=== PATIENT | female | born 1950 | race African-American/Black ===

== ENCOUNTER → 2017-07-22 | Outpatient (CLI) | payer MEDICARE, BC ==
[~2017-07-22] MED LIST: CO Q-10100 MG PO; COD LIVER OIL1 EAC4 PO; COQ-10100 MG PO; CRESTOR10 MG PO; DIFLUCAN150 M1 PO; DIFLUCAN200 MG PO; DIOVAN 80 MG TA80 M1 PO; HYDROCODON-ACE1 EAC7 PO; LIVALO2 MG PO; LOSARTAN POTAS100 MG PO; MAALOX ADVANCE355 M1 PO; METFORMIN HCL500 MG PO; MOBIC7.5 MG PO; NEPHROCAPS SOFT1 CAP; NEXIUM40 MG PO; NORCO 5-325 TA1 EACH PO; OMEGA 3 1,0001 EACH PO; PREDNISONE 10 M10 MG PO; UBIQUINOL100 MG PO; UNICOMPLEX M TA1 TA1 PO; VITAMIN B-12500 MCG PO; VITAMIN D-32000 UNIT PO; VITAMIN D2000 UNIT PO; ZANAFLEX4 MG PO
== END ==
LOC: M.RAD 09:00
DX: M81.0 Age-related osteoporosis without current pathological fracture (principal); N91.2 Amenorrhea, unspecified; Z78.0 Asymptomatic menopausal state

== ENCOUNTER → 2017-12-14 | Outpatient (CLI) | payer MEDICARE, BC ==
[2017-12-14 19:07] LABS: eGFR IF AFRICAN AMERICAN 79 (>59)
[2017-12-15 12:05] LABS: PARATHYROID HORMONE 120 pg/mL (15-65)
== END ==
LOC: M.LAB 09:33
PROVIDERS: Internal Medicine Gastroenterology
DX: E83.52 Hypercalcemia (principal); I10 Essential (primary) hypertension; E78.5 Hyperlipidemia, unspecified; M81.0 Age-related osteoporosis without current pathological fracture; K21.9 Gastro-esophageal reflux disease without esophagitis

== ENCOUNTER → 2017-12-24 | Outpatient (CLI) | payer MEDICARE, BC | LOC: M.RAD 12-16 09:20 | DX: Z12.31 Encounter for screening mammogram for malignant neoplasm of breast (principal) ==

== ENCOUNTER 2018-01-21 17:16 | Inpatient (IN) | payer MEDICARE, BC ==
[~2018-01-21] VITALS: Ht 152.4 cm; Wt 65.3 kg
[~2018-01-21 17:16] MED LIST changes: -DIFLUCAN150 M1 PO; -LOSARTAN POTAS100 MG PO; -VITAMIN B-12500 MCG PO
[2018-01-21 17:26] VITALS: BP 207/119
[2018-01-21] MEDS ORDERED: LIVALO2 MG PO (17:33)
[2018-01-21] MEDS ORDERED: LOSARTAN POTAS100 MG PO (17:34)
[2018-01-21] MEDS ORDERED: DIFLUCAN150 M1 PO (17:34)
[2018-01-21] MEDS ORDERED: VITAMIN B-12500 MCG PO (17:34)
[2018-01-21 18:37] LABS: ABSOLUTE BASOPHILS 0.1 thou/uL (0.0-0.2); ABSOLUTE EOSINOPHILS 0.1 thou/uL (0.0-0.7); ABSOLUTE LYMPHOCYTES 2.5 thou/uL (0.8-5.3); ABSOLUTE MONOCYTES 0.5 thou/uL (0.0-1.2); ABSOLUTE NEUTROPHILS 2.4 thou/uL (1.6-8.1); BASOPHILS 1.2 %; EOSINOPHILS 1.2 %; HEMATOCRIT 40.8 % (37.0-47.0); HEMOGLOBIN 13.4 gm/dL (12.0-15.0); LYMPHOCYTES 44.5 %; MCH 29.7 pg (26.0-34.0); MCV 90.1 fL (80.0-100.0); MONOCYTES 9.9 %; MPV 8.3 fl. (7.2-11.1); NUCLEATED RBCS 0 /100WBC; PLATELET COUNT* 237 thou/uL (150-400); POLYS 43.2 %; RBC 4.53 mil/uL (4.20-5.00); RDW-CV 14.5 % (10.5-14.5); WBC 5.5 thou/uL (4.0-11.0)
[2018-01-21 18:50] LABS: ANION GAP 7 mmol/L (7-16); BUN 11 mg/dL (7-18); CALCIUM 9.5 mg/dL (8.5-10.1); CHLORIDE 105 mmol/L (98-107); CO2 28 mmol/L (21-32); CREATININE 1.1 mg/dL (0.6-1.3); GLUCOSE 122 mg/dL (70-99); POTASSIUM 3.8 mmol/L (3.5-5.1); SODIUM 140 mmol/L (136-145)
[2018-01-21 19:01] LABS: ALBUMIN 3.7 g/dL (3.4-5.0); ALKALINE PHOSPHATASE 80 U/L (46-116); LIPASE 140 U/L (73-393); MAGNESIUM 2.1 mg/dL (1.8-2.4); NT-PRO BRAIN NAT PEPTIDE 341 pg/mL (<300); SGOT 16 U/L (15-37); SGPT 22 U/L (30-65); TOTAL BILIRUBIN 0.9 mg/dL (<0.1-1.0); TOTAL PROTEIN 7.4 g/dL (6.4-8.2); TROPONIN-I LEVEL <0.06 ng/mL (<0.06)
[2018-01-21 20:58] VITALS: BP 138/79
[2018-01-21 21:00] VITALS: BP 150/71
[2018-01-22] VITALS: BP 116/62
--- NOTE | 2018-01-22 01:09 | NUR ---
PT ARRIVED TO 222 AT 2105. ALERT ORIENTED. PT QUESTIONING NURSE ABOUT SLIGHT VARIANCES IN HR AND BP. REASURRANCE PROVIDED. PT STATED PAIN 1/10 CHEST PRESSURE. AFTER PT ADMITTED SHE STATED CHEST PRESSURE 3/10. DR DELVALLE NOTIFIED. TYLENOL ORDER OBTAINED AND NTG GIVEN. PT RATED PAIN 1/10 AFTER NTG. 22OO TROPONIN BACK AT .20. DR DELVALLE NOTIFIED A SECOND TIME. TRAMADOL AND CLONAZAPAM ORDERED AND GIVEN. PT RESTING COMFORTABLY WITH EYES CLOSED. TELEMETRY SHOWS SR/SB BBB 50S-60S. AMBULATES IN ROOM STEADY GAIT.
[2018-01-22 04:00] VITALS: BP 115/70
[2018-01-22 08:00] VITALS: BP 145/76
--- NOTE | 2018-01-22 08:00 | NUR ---
AM ASSESSMENT COMPLETE, DEFER TO COMPUTER CHARTING. FISHING GUIDE TRACKING SB WITH BBB. ALERT OREINTED. DENIES CHEST PAIN, DIZZINESS OR ANY DISCOMFORT AT THIS TIME. WILL CONTINUE TO MONITOR.
--- NOTE | 2018-01-22 10:30 | NUR ---
MET WITH PT TO DISCUSS HOME SITUATION/DC PLANNING. PT LIVE WITH SPOUSE, HE IS DIALYSIS PT AND SHE CARES FOR HIM. PT IS INDEPENDENT AND ACTIVE. STATES HAS HAD SOME FAMILY 'STRESS' LATELY AND THINKS IT MAY HAVE CONTRIBUTED TO CURRENT HEALTH. PT DENIES DC NEEDS, PLANS TO GO HOME TOMORROW.
[2018-01-22 12:08] VITALS: BP 155/90
--- NOTE | 2018-01-22 15:06 | EKG ---
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 01/22/18 1506 26 26 Prashanth Guerra MD, [facility] /EPI
[2018-01-22 15:59] VITALS: BP 140/85
--- NOTE | 2018-01-22 16:24 | NUR ---
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 NO COMPLAINTS OF CHEST PAIN, DIZZINESS OR ANY DISCOMFORT TO NURSING. EDUCATED ON CARDIAC CATH SCHEDULED FOR TOMORROW VERBALIZED UNDERSTANDING. CALL LIGHT WITHIN REACH, WILL CONTINUE WITH PLAN OF CARE.
[2018-01-22 20:00] VITALS: BP 111/67
[2018-01-23] VITALS (11 sets, daily range): BP systolic 97–128; BP diastolic 53–76
--- NOTE | 2018-01-23 03:48 | NUR ---
EMERGENCY MANAGEMENT CONSULTANT SPOKEN WITH ATTEMPT MADE TO ACQUIRE TIME FOR PROCEDURE RELATED TO WILL CALL MEDICATIONS SCHEDULED AT 0700 UNABLE TO OBTAIN TIME PRESENTLY WILL REPORT TO ONCOMING RN REGARDING MEDICATION AND ADMINISTRATION
[2018-01-23 05:23] LABS: ANION GAP 8 mmol/L (7-16); BUN 15 mg/dL (7-18); CALCIUM 9.5 mg/dL (8.5-10.1); CHLORIDE 109 mmol/L (98-107); CHOLESTEROL 255 mg/dL (<200); CO2 25 mmol/L (21-32); GLUCOSE 100 mg/dL (70-99); HDL CHOLESTEROL 66 mg/dL (>40); LDL CHOLESTEROL 174 mg/dL (<100); POTASSIUM 4.2 mmol/L (3.5-5.1); SODIUM 142 mmol/L (136-145); TC:HDL 3.9 Ratio (Not establshd); TRIGLYCERIDE 75 mg/dL (<150); VLDL 15 mg/dL (<40)
[2018-01-23 05:27] LABS: SERUM ASSESSMENT Clear
--- NOTE | 2018-01-23 06:04 | NUR ---
PATIENT COMPLAINED OF CHEST PRESSURE RATED AT 4/10 MEDISTERNAL GESTURED WHEN ASKED FOR LOCATION OF DISCOMFORT EKG OBTAINED WITHOUT NOTED SIGNIFICANT CHANGES THE PATIENT DENIED SOA,OR GI UPSET B/P OBTAINED NITRO ADMINISTERED PRN X 2 DOCUMENTED B/P MAINTAINED 112/66 HR 55 AT REASSESSMENT POST NITRO ADMINISTRATION PATIENT REPORTS COMPLETE RELIEF FROM DISCOMFORT 20G IV PLACED IN RAC IN PREPARATION FOR PROCEDURE ATTEMPTS X 3 BY 3 RN PATIENT NOT TOLERATE WELL MX COMPLAINTS OF PAIN COMPLAINS OF PAIN WITH FLUSH IN 22 IN RFA SITE IS SOFT TO TOUCH WITHOUT ERYTHEMA, WARMTH, OR SWELLING FLUIDS INITATED ORDERED AT THIS TIME
[2018-01-23 06:15] LABS: APTT 29.7 Seconds (25.0-31.3); PROTIME 10.3 Seconds (9.20-11.50)
--- NOTE | 2018-01-23 06:17 | NUR ---
ASSUMED CARE OF PATIENT AT 1900 THE PATIENT REMAINS IN SB-SR OCCASIONALLY MEASURING OUT A 1ST DEG AV BLOCK BBB NOTED ON THE TELEMONITOR O2 SAT IS MAINTAINED ON RA THE PATIENT CONTINUES TO GET UP AD DAVID ROUTINE ET PRN INTERVENTIONS CONTINUE TO BE EFFECTIVE FOR SX MANAGEMENT PATIENT CONTINUES TO PROGRESS TOWARDS GOALS SAFETY INTERVENTIONS CONTINUE BED LOWERED WHEELS LOCKED SIDE RAILS UP X 2 CALL LIGHT IN REACH REPORT TO BE GIVEN TO ONCOMING KAYLA
--- NOTE | 2018-01-23 11:32 | CARD ---
[address] [address] CARDIAC CATH REPORT Name: RAVIN MUSE Room: [address] ADM IN M.R.#: [id number] Admission: 01/21/18 Attend Phys: Ann Marie Coppola Discharge: Date of : 48 Report #: [id number] THIS REPORT FOR: //name// APPROVED REPORT Study performed: 01/23/2018 09:43:17 Patient Details Patient Status: In-Patient Room #: 222 The patient is a 67 year-old female Event Personnel Clif Sandoval Boatbuilder Supervisor, Shelby Cabello RN Furnace Mason, Leslie Joshi RTR Monitor, Miky Huffman Scrub Procedures Performed Art Access - R femoral artery* Left Heart Cath w/or w/o Coronaries LHC Hemostasis w/ Mynx Procedure Narrative The patient was brought electively to the Cardiac Catheterization Laboratory and was prepped and draped in a sterile manner. The right femoral was infiltrated with 2% Lidocaine subcutaneous anesthesia. A [place] 6 FR sheath was inserted into the right femoral artery. Coronary angiography was performed using coronary diagnostic catheters. The right coronary system was accessed and visualized with a Diagnostic 6Fr JR4 catheter. The left coronary system was accessed and visualized with a Diagnostic 6Fr JL4 catheter. The left ventricle was accessed and visualized with a Diagnostic 6Fr straight pigtail catheter. Left ventricular/Aortic Valve gradient assessed via catheter pullback. An aortogram of the TOTH was performed. Pre-demployment femoral angiogram was performed . Closure device was deployed with a Fr Mynx 6Fr/7Fr. Hemostasis was obtained with manual pressure following sheath removal without any complications. There was no hematoma. The right coronary system was also accessed and visualized with a diagnostic 6Fr 3DRC catheter. Intraoperative Conscious Sedation Sedation start time: 10:21 Case end Time: 10:45 Fentanyl 25 mcg Versed 2 mg Fluoro Time: 3.2 minutes Dose: DAP 47525 cGycm2 390 mGy Contrast Type and Amount: Visipaque 90 [place] [address] CARDIAC CATH REPORT Name: RAVIN MUSE Room: [address] IN [facility]#: [id number] Admission: 01/21/18 Attend Phys: Ann Marie Coppola Discharge: Date of : 48 Report #: [id number] Diagnostic Cath Left Main 0 Percent narrowing LAD 20% proximal LAD narrowing and tortuosity of the midportion of this dominant vessel Circumflex Codominant vessel with 0% narrowing Right Coronary Small but codominant vessel with 30-40% ostial catheter-induced spasm Left Ventriculography The left ventricle is normal in size with normal contractility. The left ventricular ejection fraction is estimated to be 60%. Left ventricular wall motion abnormalities are not present. There is no mitral insufficiency. Hemodynamics The aortic pressure is 148/65 mmHg with a mean of 96 mmHg. The left ventricular pressure is 138/4 mmHg with a mean of mmHg. The left ventricular end diastolic pressure is 10 mmHg. Pullback from the left ventricle to the aorta revealed no gradient across the aortic valve. Conclusion #1 mild coronary artery disease characterized by the following: A 20% proximal LAD narrowing with tortuosity of the midportion of this vessel B normal left main and circumflex coronary arteries C small but codominant right coronary artery with 30-40% ostial catheter-induced spasm #2 normal left ventricular systolic function, estimated ejection fraction being 60% #3 normal left-sided hemodynamics study Recommendations Cardiac [place] [address] CARDIAC CATH REPORT Name: RAVIN MUSE Room: [address] IN [facility].#: [id number] Admission: 01/21/18 Attend Phys: Ann Marie Coppola Discharge: Date of : 48 Report #: [id number] Diagnostic Cath Approved by: Clif Sandoval MD Date/Time: 01/23/2018 11:30:11 <ELECTRONICALLY SIGNED> By: Clif Sandoval MD, [facility] 01/23/18 1132 1132 1132Jojose Sandoval MD, FACC /INF
--- NOTE | 2018-01-23 13:58 | EKG ---
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
--- NOTE | 2018-01-23 14:02 | EKG ---
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 Officer: OSKAR : 1950 Requested By: Rita Landers Order Number: [id number] Reading MD: Abbe Guerra Measurements Intervals [place] Rate: 52 P: 42 ID: [id number] QRS: -31 QRSD: 164 T: 183 QT: 422 QTc: 393 Interpretive Statements Sinus rhythm Left bundle branch block Compared to ECG 01/21/2018 17:27:08 No significant changes Electronically Signed On 01-23-2018 14:01:47 CDT by Abbe Guerra [email or web address] <ELECTRONICALLY SIGNED> By: Prashanth Guerra MD, [facility] 01/23/18 1401 0505 0505 Prashanth Guerra MD, [facility] /EPI
--- NOTE | 2018-02-21 09:08 | CON ---
[address] [address] CONSULTATION Name: RAVIN MUSE Room: [address] IN M.R.#: [id number] Admission: 01/21/18 Attend Phys: Ann Marie Coppola Discharge: 01/23/18 Date of : 48 Report #: [id number] THIS REPORT FOR: //name// CC: Marianna Landers Cardiology Consultation HISTORY OF PRESENT ILLNESS: I was asked by Dr. Landers to see this 67-year-old -Prydeinig woman in cardiology consultation for evaluation and treatment of chest pain with an elevated troponin. This lady also has a chronic left bundle-branch block. She developed chest pain at about noon yesterday and it came and went on and off for about 5 hours. She describes the chest pain as substernal. It is a pressure sensation and a 7 on a scale of 10. It was worse with activity and better with rest. It did not occur at rest completely. It was not associated with shortness of breath, nausea, vomiting or diaphoresis. There was no relationship to food. It did radiate into her neck. At the she had this, her blood pressure was up, as high as 204/111. She also had a headache with it. She felt like her heart was racing, but her blood pressure device recorded only a heart rate of high 70s. She normally; however, heart rates in the low 60s. She did have an elevated troponin and her initial troponin was 0.06. Subsequently, it faisal to 0.2 and subsequently 0.23. Further troponins are pending. She does have a chronic left bundle that was unchanged from previous left her previous EKGs. She has had chest pains in the past and has seen Dr. Arroyo for that. She sees him in [place] office. We obtained one of his notes, which said that she has had an ischemic workup that was negative. She did have a cardiac catheterization in [place] years ago and she was told that it did not show anything. She thinks that Dr. Arroyo did a nuclear stress test on her, but she is not sure. She is not sure when that was either. She denies any recent chest pains until this one occurred. She has not had dyspnea on exertion, shortness of breath at rest, orthopnea, PND or edema. She denies syncope or near syncope. Coronary risk factors include hypercholesterolemia, borderline diabetes, she is on metformin for that, and high blood pressure. Her blood pressure has been higher than usual. She was taken off of losartan recently and substituted losartan for it. It has not controlled her blood pressure as well as it should. She has not had family history of heart disease. She has not had renal disease, peripheral vascular disease, carotid disease, TIAs or CVAs, claudication or open or nonhealing wounds. She has had a past history of acid reflux surgery. ALLERGIES: She told me she had no known allergies; however, the allergies listed in the chart include HYDROCHLOROTHIAZIDE AND TRIAMTERENE, that is she is apparently allergic to DYAZIDE; DOXYCYCLINE, AMLODIPINE, and ROSUVASTATIN. That may be from her primary care doctor's chart. She sees Dr Pickens. HOME MEDICATIONS: Include vitamin D, B12, Diflucan, which she was apparently put on recently, losartan 100 mg daily, metformin 500 mg daily at bedtime, and [facility] [address] [facility] [place] [address] CONSULTATION Name: RAVIN MUSE Room: [address] IN [place].#: [id number] Admission: 01/21/18 Attend Phys: Rita CareyLauren Ann Marie Landers Discharge: 01/23/18 Date of : 48 Report #: [id number] fish oil 1000 mg daily, as well as CoQ10 100 mg daily. REVIEW OF SYSTEMS: Positive for pneumonia, shortness of breath with exercise, passing out in the distant past, history of a heart murmur, diabetes, arthritis, wearing glasses, and wearing dentures. Otherwise, review of systems is negative for some 40 different complaints in 14 different system categories including central nervous system, general, respiratory, cardiovascular, endocrine, gastrointestinal, genitourinary, hematologic, lymphatic, allergic, immunologic, psychiatric, musculoskeletal, skin, eyes, ears, mouth, and throat. Please see review of system form for details and negatives in review of systems. SOCIAL HISTORY: She is , does not smoke, drink or use illegal drugs. FAMILY HISTORY: Apparently, no family history of what she terms as heart problems, but she does have a family history of high blood pressure medications. She has 1 sister and 2 brothers that of cancer. PHYSICAL EXAMINATION: GENERAL: She presents as a well-developed, well-nourished white female in no acute distress. VITAL SIGNS: Pulse was 57, blood pressure was 115/70, respirations are 16 and regular, and temperature was 97.3. HEENT: Her head was atraumatic. Eyes clear. NECK: Supple. There is no jugular venous distention or hepatojugular reflux. Thyroid is not enlarged. There is no adenopathy. SKIN: Warm and dry. Mucous membranes are moist. LUNGS: Clear to auscultation and percussion. HEART: Revealed normal first and second heart sound. There is soft S4. There is no S3. There are no murmurs, rubs, thrills, heaves or gallops. PMI is nondisplaced. ABDOMEN: Soft, flat, nontender, no palpable masses, no organomegaly. EXTREMITIES: Reveal no cyanosis, clubbing or edema. NEUROLOGIC: The patient mentated normally, talked normally, moved all extremities normally. DATA: Chest x-ray was negative. I believe her BNP was 341. IMPRESSION: 1. Chest pain that likely represents a non-ST segment elevation myocardial infarction. 2. Mild elevation of troponin that appears to be rising from normal. 3. Essential hypertension. 4. Hyperlipidemia. 5. Borderline diabetes mellitus, adult onset type. 6. Left [place] [address] CONSULTATION Name: RAVIN MUSE Room: [address] IN .R.#: [id number] Admission: 01/21/18 Attend Phys: Ann Marie Coppola Discharge: 01/23/18 Date of : 48 Report #: [id number] RECOMMENDATION: We will up get her on aspirin. She got some in the ER and we will continue the aspirin. We will start a beta manolo, give her p.r.n. nitro. She has more pain. We will put her on nitro paste. She will hold her metformin because I think she needs a cardiac catheterization. That will probably be done tomorrow; however, I will talk to Dr. Arroyo who is in the middle of a case at [facility] already today. He has also had a previous case at [facility] today. We will probably put this off until tomorrow. She seems to be quite stable. She has had no pain since she got nitroglycerin in the ER. Thank you very much for asking me to see the patient. If there are any questions, please feel free to contact me. <ELECTRONICALLY SIGNED> By: Jeff Trevizo MD, FACC 02/21/18 0908 1344 [id number]. Abbe Guerra MD, FACC /nt
== END 2018-01-23 17:35 | disposition home or self-care (01) | DRG 281 ==
LOC: M.ERS 17:16 → M.TBA-ER 20:17 → M.2W 20:17
PROVIDERS: Emergency Medicine Emergency Medical Services; Internal Medicine; ADMIT Internal Medicine
PROC: B215YZZ Fluoroscopy of Left Heart using Other Contrast (ICD-10-PCS; principal; 2018-01-23)
PROC: B211YZZ Fluoroscopy of Multiple Coronary Arteries using Other Contrast (ICD-10-PCS; principal; 2018-01-23)
PROC: 4A023N7 Measurement of Cardiac Sampling and Pressure, Left Heart, Percutaneous Approach (ICD-10-PCS; principal; 2018-01-23)
PROC: B310YZZ Fluoroscopy of Thoracic Aorta using Other Contrast (ICD-10-PCS; principal; 2018-01-23)
DX: I21.4 Non-ST elevation (NSTEMI) myocardial infarction (principal); I16.1 Hypertensive emergency; I10 Essential (primary) hypertension; E78.5 Hyperlipidemia, unspecified; K21.9 Gastro-esophageal reflux disease without esophagitis; I44.7 Left bundle-branch block, unspecified; R73.03 Prediabetes; Z79.82 Long term (current) use of aspirin; Z88.1 Allergy status to other antibiotic agents; Z88.8 Allergy status to other drugs, medicaments and biological substances; Z79.899 Other long term (current) drug therapy

== ENCOUNTER → 2018-02-28 | Outpatient (CLI) | payer MEDICARE, BC ==
[~2018-02-28] MED LIST changes: +DIFLUCAN150 M1 PO; +LOSARTAN POTAS100 MG PO; +VITAMIN B-12500 MCG PO
== END ==
LOC: M.MRI 07:07
DX: M47.896 Other spondylosis, lumbar region (principal); M54.6 Pain in thoracic spine

== ENCOUNTER → 2018-04-05 | Outpatient (CLI) | payer MEDICARE, BC ==
[~2018-04-05] MED LIST changes: +BYSTOLIC 5 MG5 M1 PO; +MOBIC15 MG PO; +TYLENOL325 M1 PO
--- NOTE | ~2018-04-05 | PAINCON ---
[address] [address] PAIN MANAGEMENT CONSULTATION Name: RAVIN MUSE Room: [facility].#: [id number] Admission: 04/05/18 Attend Phys: Shasta Scruggs MD Discharge: Date of : 48 Report #: [id number] THIS REPORT FOR: //name// CC: Marianna Scruggs DATE OF SERVICE: 04/05/2018 CHIEF COMPLAINT: Lumbar radicular pain, low back and leg pain. HISTORY: The patient is a 67-year-old female who notes pain on her left side, particularly when she goes from a sitting to a standing position. She has undergone physical therapy for 2 weeks. She has been undergoing cardiac rehabilitation and a mild myocardial infarct in 12/2017. Complains of pain, which is quite problematic particularly when she is getting out of the car. She feels that a portion of it may have been a result of carrying her 's oxygen. The patient feels like she has been having a knot in the low back and buttocks area. ALLERGIES: DYAZIDE, DOXYCYCLINE, AMLODIPINE, AND CRESTOR. MEDICATIONS: Tylenol 325 mg q. 6 hours p.r.n., vitamin D3 2000 units, metformin 500 mg b.i.d., Bystolic 5 mg, fish oil 1000 mg, and Livalo 2 mg, and CoQ10. PAST MEDICAL HISTORY: Hypertension, coronary artery disease, hyperlipidemia, prediabetic, GERD, and left bundle branch block. PAST SURGICAL HISTORY: Tonsillectomy, esophageal dilation, tubal ligation, Diego fundoplication. REVIEW OF SYSTEMS: Denies fever or chills. Denies headaches, or congestion. Denies cough, shortness of breath. Denies abdominal distention, constipation. Denies burning, urine, urgency, frequency, or hematuria. Denies rash or burning. LABORATORY DATA: 1. MRI of the lumbar spine dated 02/28/2018, L3-L4 shows no focal disk protrusion. Central canal and neural foramen are maintained. This is similar to a prior study. 2. L4-L5 mild diffuse disk bulging. There is no focal disk protrusion. Central canal or neural foramen are maintained. There is facet spurring and degenerative changes. The appearance is similar to prior exam. 3. L5-S1 shows a posterior central slightly left lateral focal disk protrusion. This extends inferiorly along the S1 level. This does cause [place] [address] PAIN MANAGEMENT CONSULTATION Name: RAVIN MUSE Room: [facility]#: [id number] Admission: 04/05/18 Attend Phys: Shasta Scruggs MD Discharge: Date of : 48 Report #: [id number] PAIN CLINIC ASSESSMENT/PQRS: 1. Osteoarthritis, rheumatoid arthritis. 2. The patient is not being treated for rheumatoid arthritis or osteoarthritis. 3. Height 5 feet 2 inches and weight 144 pounds, BMI is 26.4. 4. Vital signs: Blood pressure 130/69, heart rate 84, respiratory rate 18, room air saturation is 95%. 5. Pain intensity 7/10. Temperature 98.4. 6. Fall history. The patient has not fallen in the last 3 months. 7. Blood thinner. The patient is not on a blood thinning medication. 8. Hypertension. The patient has been treated for hypertension. 9. Opioid greater than 6 weeks. The patient is not receiving opioid medications for greater than 6 weeks. 10. Risk assessment tool for opioid use. 11. Functional assessment tool. 12. Recreational drug use. The patient denies. 13. Tobacco: The patient denies use of tobacco. 14. Alcohol: The patient denies frequent use of alcoholic beverages. PHYSICAL EXAMINATION: GENERAL: The patient is a well-developed, well-nourished black female, appears her stated age. She is alert and oriented x 3. Affect is appropriate. Speech is fluent. HEENT: Normocephalic, atraumatic. Extraocular eye muscles intact. Sclerae nonicteric. Mucous membranes are moist. NECK: Without adenopathy or JVD. HEART: Regular rate. EXTREMITIES: Upper extremity muscle strength is judged to be 5/5 for the major muscle groups. Deep tendon reflexes +2 at the biceps bilaterally. The patient without significant scoliosis, kyphosis or lordosis. Lumbar area, the patient's patellar reflexes are +2, ankle reflexes +2. Conor's sign is positive. The patient has pain and discomfort in the area of the right SI joint. Palpation on the lateral side with compression causes increased pain and discomfort of the left hip. IMPRESSION: SI joint dysfunction. RECOMMENDATIONS: We discussed treatment options with the patient. This includes but are not limited to infection, worsening of the pain, no improvement in pain and the patient elects to proceed. PROCEDURE NOTE: The patient was taken to the procedure area. She was placed in the prone position. Her back was sterilely prepped with a Betadine solution. Fluoroscopy using anterior, posterior imaging were used to identify the left SI joint. Palpation in this area movement causes reproduction of the patient's discomfort. [address] [address] PAIN MANAGEMENT CONSULTATION Name: RAVIN MUSE [facility] [id number] Admission: 04/05/18 Attend Phys: Shasta Scruggs MD Discharge: Date of : 48 Report #: [id number] IMPRESSION: 1. Symptomatic lumbar radiculopathy. 2. Lumbosacral spondylosis. Sacroiliac mediated pain on the left side. 3. Coronary artery disease. 4. Hypertension. 5. Hyperlipidemia. 6. Borderline diabetes. 7. Gastroesophageal reflux disease. 8. History of esophageal stenosis. RECOMMENDATIONS: We discussed treatment options with the patient. We will have the patient try meloxicam and note its efficacy. She will return to the pain clinic for the possibility of a SI joint injection. We would like to thank you for letting us participate in her care. We hope she continues to improve. PROCEDURE NOTE: We have discussed the treatment option with the patient. She was taken to the procedure area. Placed on the examination table. Her back was sterilely prepped with a chlorhexidine solution and allowed to dry. The patient had pain and discomfort in the left SI joint area. A 0.25% bupivacaine was infiltrated into this area with a 25-gauge needle. A 20-gauge spinal needle was then advanced to the left SI joint area. Aspiration was negative. Total of 80 mg Depo-Medrol with 6 mL of 0.5% bupivacaine was injected. The patient tolerated the procedure well. There were no complications, she remained in for an appropriate amount of time. By: [id number]. Ken Scruggs MD /nt
== END ==
LOC: M.PC 03-22 12:40
DX: M47.27 Other spondylosis with radiculopathy, lumbosacral region (principal); M53.3 Sacrococcygeal disorders, not elsewhere classified; I25.10 Atherosclerotic heart disease of native coronary artery without angina pectoris; I10 Essential (primary) hypertension; E78.5 Hyperlipidemia, unspecified; K21.9 Gastro-esophageal reflux disease without esophagitis; R73.03 Prediabetes; Z87.19 Personal history of other diseases of the digestive system

== ENCOUNTER → 2018-06-09 | Outpatient (CLI) | payer MEDICARE, BC | LOC: M.RAD 05-30 14:56 | DX: D25.1 Intramural leiomyoma of uterus (principal); M81.0 Age-related osteoporosis without current pathological fracture; M85.88 Other specified disorders of bone density and structure, other site; Z78.0 Asymptomatic menopausal state ==

== ENCOUNTER 2019-01-30 08:36 | Emergency (ER) | payer MEDICARE, BC ==
[~2019-01-30] VITALS: Ht 157.5 cm; Wt 63.0 kg
[2019-01-30 09:45] LABS: INFLUENZA A ANTIGEN Negative (Negative); INFLUENZA B ANTIGEN Negative (Negative)
[2019-01-30] MEDS ORDERED: AMOXICILLIN875 MG PO (10:37)
[2019-01-30 10:48] VITALS: BP 132/59
[2019-02-21] MEDS ORDERED: MOBIC15 MG PO (09:07)
[2019-02-21] MEDS ORDERED: BLACK SEED OIL PO (10:39)
[2019-02-21] MEDS ORDERED: ASA81BEC PO (10:40)
== END 2019-01-30 10:49 | disposition home or self-care (01) ==
LOC: M.ERS 08:36
PROVIDERS: Personal Emergency Response Attendant
DX: J06.9 Acute upper respiratory infection, unspecified (principal); I10 Essential (primary) hypertension; E78.5 Hyperlipidemia, unspecified; K21.9 Gastro-esophageal reflux disease without esophagitis; Z88.1 Allergy status to other antibiotic agents; Z88.8 Allergy status to other drugs, medicaments and biological substances; Z98.890 Other specified postprocedural states; Z98.51 Tubal ligation status

== ENCOUNTER → 2019-02-21 | Outpatient (CLI) | payer MEDICARE, BC ==
[~2019-02-21] MED LIST changes: +AMOXICILLIN875 MG PO; +ASA81BEC PO; +BLACK SEED OIL PO
--- NOTE | 2019-03-06 13:25 | PAINCON ---
[address] [address] PAIN MANAGEMENT CONSULTATION Name: RAVIN MUSE Room: [facility] CATHI LantiguaLauren#: [id number] Admission: 02/21/19 Attend Phys: Shasta Scruggs MD Discharge: Date of : 48 Report #: [id number] THIS REPORT FOR: //name// CC: Marianna Huerta DATE OF SERVICE: 02/21/2019 PRIMARY PHYSICIAN: Marianna Pickens DO CHIEF COMPLAINT: Left and right low back pain. HISTORY OF PRESENT ILLNESS: The patient is a 68-year-old female, who has been seen in the pain clinic in the past. She suffers from sacroiliac joint dysfunction. She has noted a return of the pain and discomfort. It involves primarily the left side, but it involves the right as well. She has undergone SI joint injections in the past and notes that the pain usually improves for about a year. Over the last few weeks, she has noticed a worsening of her pain. She has had no complication from the previous injections. She would like to proceed with another treatment for the back and leg pain. Right side is more problematic than the left. The patient states that it feels like there is a knot in her right side and lumbar area. Notes that the pain is worse with activity, walking, sitting, standing, climbing stairs, bending and twisting. She notes that heat has been somewhat beneficial. She has been taking nonsteroidal anti-inflammatory medications. ALLERGIES: DYAZIDE, DOXYCYCLINE, AMLODIPINE, CRESTOR. CURRENT MEDICATIONS: Tylenol 325 mg, vitamin D3 of 2000 units, metformin 500 mg b.i.d., Bystolic 5 mg, omega fatty acids 1000 mg, Livalo 2 mg, CoQ10 of 100 mg, black seed oil one-half tablespoon b.i.d., aspirin 81 mg weekly. PAIN CLINIC ASSESSMENT AND PQRS: 1. The patient is not being treated for osteoarthritis or rheumatoid arthritis. 2. Height 5 feet 2 inches, weight 141 pounds, BMI is 25.2. 3. Vital signs: Blood pressure 141/75, heart rate 56, respiratory rate 16, room air saturation 97%, temperature is 98.3. 4. Pain intensity 5/10 to 10/10 depending on the activity. 5. Blood thinner. The patient is not on a blood thinning medication. 6. Fall. The patient has not fallen and/or needed medical help. 7. History of hypertension. The patient is being treated for hypertension. 8. Opioids greater than 6 weeks. The patient is not receiving opioid medication. 9. Risk assessment tool, low for opioid use. 10. [place] [address] PAIN MANAGEMENT CONSULTATION Name: RAVIN MUSE Room: [facility] Kenzie#: [id number] Admission: 02/21/19 Attend Phys: Shasta Scruggs MD Discharge: Date of : 48 Report #: [id number] 11. Recreational drug use: The patient denies. 12. Tobacco: The patient does not smoke cigarettes. 13. Alcohol: The patient rarely drinks alcoholic beverages. PHYSICAL EXAMINATION: GENERAL: The patient is a well-developed, well-nourished black female. Appears her stated age. She is alert and oriented x 3. Her affect is appropriate. Speech is fluent. HEENT: Normocephalic, atraumatic. Extraocular eye muscles intact. Sclerae nonicteric. Mucous membranes are moist. The patient is wearing glasses. NECK: Without adenopathy or JVD. HEART: Regular rate. ABDOMEN: Nontender. EXTREMITIES: Upper extremity muscle strength judged to be 5/5 for the major muscle groups in the upper extremity. The patient has pain and discomfort in the left as well as the right low back area. Conor sign is positive. The patient has increased pain in the left as well as the right posterior superior iliac spine area. Anterior and posterior spring tests are positive. IMPRESSION: 1. Left and right sacroiliac joint dysfunction. 2. Hypertension. 3. Diabetes. 4. Coronary artery disease. 5. Gastroesophageal reflux disease. 6. History of left bundle-branch block. RECOMMENDATIONS: We discussed treatment options with the patient. Risks and benefits of SI joint injection were discussed. The possible complication of the procedure, which could include but are not limited to infection, worsening of pain, no improvement in pain, or nerve damage. The patient elects to proceed. PROCEDURE NOTE: The patient was taken to the procedure area. She was then placed in the prone position. A pillow was placed under the abdomen to improve positioning. Fluoroscopy using anterior, posterior as well as lateral viewing were implemented. The patient's back was sterilely prepped with a Betadine solution. It was allowed to dry. The right SI joint was identified using fluoroscopy. A 0.25% bupivacaine skin wheal was placed with a 25-gauge needle. A 20-gauge spinal needle was then advanced to the left SI joint area. The patient states that this did reproduce her pain. Aspiration was negative. Contrast showed appropriate placement. A total of 40 mg triamcinolone and 2 mL of 0.5% bupivacaine was injected. The patient tolerated that side well. The contralateral left side was treated in a like fashion. Skin wheal was raised. Fluoroscopy was used to identify the SI joint. A total of 40 mg Depo-Medrol was injected after this area had been identified and contrast dye was injected showing appropriate flow. A 40 mg triamcinolone was injected. A 2 mL of 0.5% [place] [address] PAIN MANAGEMENT CONSULTATION Name: RAVIN MUSE Room: [facility]#: [id number] Admission: 02/21/19 Attend Phys: Shasta Scruggs MD Discharge: Date of : 48 Report #: [id number] bupivacaine was injected. The patient tolerated the procedure well. There were no complications. She remained for an appropriate amount of time. She will follow up in the future as needed. We would like to thank you for letting us participate in her care. We hope she continues to improve. <ELECTRONICALLY SIGNED> By: Shasta Scruggs MD 03/06/19 1325 [id number]. Ken Scruggs MD /nt
== END | disposition home or self-care (01) ==
LOC: M.PC 05:06
DX: M54.5 Low back pain (principal); M53.3 Sacrococcygeal disorders, not elsewhere classified; G89.29 Other chronic pain; I10 Essential (primary) hypertension; E11.9 Type 2 diabetes mellitus without complications; I25.10 Atherosclerotic heart disease of native coronary artery without angina pectoris; K21.9 Gastro-esophageal reflux disease without esophagitis; Z98.890 Other specified postprocedural states; Z79.899 Other long term (current) drug therapy; Z88.8 Allergy status to other drugs, medicaments and biological substances; Z79.82 Long term (current) use of aspirin

== ENCOUNTER 2020-11-17 12:07 | Emergency (ER) | payer OTHER, MEDICARE ==
[~2020-11-17] VITALS: Ht 154.9 cm; Wt 64.4 kg
[2020-11-17] MEDS ORDERED: VALSARTAN40 MG PO (12:18)
[2020-11-17] MEDS ORDERED: ZETIA10 MG PO (12:18)
[2020-11-17] MEDS ORDERED: VOLTAREN ARTHRI20 GM TOP (12:32)
[2020-11-17] MEDS ORDERED: DOXYCYCLINE 10100 MG PO (12:32)
[2020-11-17 12:37] VITALS: BP 144/89
== END 2020-11-17 12:37 | disposition home or self-care (01) ==
LOC: M.ERS 12:07
DX: S70.362A Insect bite (nonvenomous), left thigh, initial encounter (principal); Z88.8 Allergy status to other drugs, medicaments and biological substances; Z79.899 Other long term (current) drug therapy; Z79.84 Long term (current) use of oral hypoglycemic drugs; Z79.82 Long term (current) use of aspirin; W57.XXXA Bitten or stung by nonvenomous insect and other nonvenomous arthropods, initial encounter; X58.XXXA Exposure to other specified factors, initial encounter; Y93.89 Activity, other specified; Y92.89 Other specified places as the place of occurrence of the external cause; Y99.8 Other external cause status